=== PATIENT | female | born 1955 | race Caucasian/White ===

== ENCOUNTER 2024-10-21 10:44 | Emergency (ER) | payer MEDICARE, OTHER ==
[~2024-10-21] VITALS: Ht 154.9 cm; Wt 87.7 kg
--- NOTE | 2024-10-21 11:08 | Physician Documentation ---
History of Present Illness ~ Chief Complaint: Abdominal Pain w/vomiting Stated Complaint: VOMITING ABD PAIN Time Seen by MD: 11:02 HPI Patient presents to the emergency room with nausea vomiting abdominal pain. She has been suffering from the nausea for the past six months. She has worked with her primary care that has not received any diagnosis that could explain her chronic nausea and vomiting. She states she has had multiple CT scans. Time of onset this morning at 5:00 a.m. [place] through when symptoms began. Medication Reconciliation Allergies: Coded Allergies: No Known Allergies (Unverified , 10/21/24) Scheduled Promethazine Hcl (Promethegan), 25 MG RC Q6H PRN N/V Review of Systems ROS All review of systems negative except as per HPI Physical Exam Vital Signs: Temperature: 98.1, Heart Rate: 88, Respiratory Rate: 18, BP: 169/69, Pulse Oximetry: 99, Weight: 87.730 Oxygen Flow Rate: 0 Physical Exam General: Patient is awake, alert, oriented x4 in mild distress Head: Normocephalic and atraumatic. Eyes: Conjunctival normal. EOMI. PERRL. ENT: Mucous membranes dry. Neck: Supple, trachea is midline. Chest: Clear to auscultation bilaterally without rales, rhonchi, or wheezes. There is no accessory muscle use or retractions. Cardiac: RRR without murmurs, gallops, or rubs. Abd: Soft, nondistended, positive diffuse abdominal tenderness mostly in the right upper quadrant Progress Results/Orders Results/Orders Orders - LIT ALVAREZ MD Urinalysis, Cult If Indicated (10/21/24 10:52) Ultrasound Of Abdomen (10/21/24 11:08) Completed Orders - LIT ALVAREZ MD Cbc/Diff (10/21/24 10:52) Lipase (10/21/24 10:52) CMP (10/21/24 10:52) LA (10/21/24 11:03) Troponin (Single) (10/21/24 11:03) Ondansetron Inj. (Zofran 4mg/2ml Vial) (10/21/24 11:10) Haloperidol Lact. (Haldol) (10/21/24 11:10) Metoclopramide Inj (Reglan Inj) (10/21/24 11:10) Ultrasound Of Abdomen (10/21/24 11:08) Ketorolac Trometh 15mg/Ml Vial (Toradol (10/21/24 11:10) Diphenhydramine Inj (Benadryl Inj.) (10/21/24 11:10) Lactic,2hr (10/21/24 13:05) Metoclopramide Inj (Reglan Inj) (10/21/24 14:25) Acetaminophen 1,000mg/100ml Iv (Ofirmev (10/21/24 14:30) Normal Saline 1000ml (0.9% Sodium Chlori (10/21/24 14:30) Medications Received in ER Medications (Trade) Dose Ordered Sig/Margarette Route PRN Reason Start Time Stop Time Status Last Admin Dose Admin (Zofran 4mg/2ml vial) 4 mg ONCE ONCE IV 10/21/24 11:10 10/21/24 11:11 DC 10/21/24 12:32 4 MG (Haldol) 2 mg ONCE ONCE IVH 10/21/24 11:10 10/21/24 11:11 DC 10/21/24 12:46 2 MG (Reglan inj) 5 mg ONCE ONCE IV 10/21/24 11:10 10/21/24 11:11 DC 10/21/24 12:34 5 MG (Benadryl inj.) 25 mg ONCE ONCE IV 10/21/24 11:10 10/21/24 11:11 DC 10/21/24 12:32 25 MG (Toradol injection) 15 mg ONCE ONCE IV 10/21/24 11:10 10/21/24 11:11 DC 10/21/24 12:33 15 MG (Reglan inj) 5 mg ONCE ONCE IV 10/21/24 14:25 10/21/24 14:31 DC 10/21/24 14:37 5 MG Acetaminophen 100 ml @ 400 mls/hr ONCE ONCE IV 10/21/24 14:30 10/21/24 14:44 DC 10/21/24 14:37 400 MLS/HR (0.9% sodium chloride (NS) 1000ml IV soln) 1,000 ml ONCE ONCE IVB 10/21/24 14:30 10/21/24 14:31 DC 10/21/24 14:37 1,000 ML Vital Signs 10/21/24 10/21/24 10/21/24 10/21/24 10:49 11:13 11:24 12:25 Temp 98.1 98.1 Pulse 88 89 92 Resp 18 17 16 16 B/P (MAP) 169/69 201/94 (129) 128/69 (88) Pulse Ox 99 95 92 O2 Flow Rate 0 0 10/21/24 10/21/24 10/21/24 10/21/24 12:33 13:33 13:37 14:29 Temp 102.9 Pulse 85 101 Resp 16 16 16 14 B/P (MAP) 131/60 (83) 138/74 (95) Pulse Ox 91 93 10/21/24 10/21/24 10/21/24 14:30 15:49 15:50 Temp 98.6 98.6 Pulse 88 89 Resp 16 16 B/P (MAP) 151/72 (98) 151/72 Pulse Ox 95 93 94 O2 Delivery Nasal Cannula* O2 Flow Rate 1 0 FiO2 N/A Laboratory Tests Test 10/21/24 11:05 10/21/24 11:36 10/21/24 13:23 White Blood Count 3.5 L Red Blood Count 5.50 Hemoglobin 14.6 Hematocrit 45.7 H Mean Corpuscular Volume 83.0 Mean Corpuscular Hemoglobin 26.6 L Mean Corpuscular Hemoglobin Concent 32.0 L Red Cell Distribution Width 16.5 H Platelet Count 130 L Mean Platelet Volume 7.8 Neutrophils (%) (Auto) 88.1 H Lymphocytes (%) (Auto) 6.8 L Monocytes (%) (Auto) 4.6 Eosinophils (%) (Auto) 0.1 Basophils (%) (Auto) 0.4 Neutrophils # (Auto) 3.1 Lymphocytes # (Auto) 0.2 L Monocytes # (Auto) 0.2 Eosinophils # (Auto) 0.0 Basophils # (Auto) 0.0 CBC Comment Sodium Level 141 Potassium Level 3.7 Chloride Level 106 Carbon Dioxide Level 25.5 Anion Gap 10 Blood Urea Nitrogen 13 Creatinine 0.86 Estimated GFR/1.73 m2 65 BUN/Creatinine Ratio 15.1 Glucose Level 131 H Calcium Level 8.9 Total Bilirubin 0.9 Aspartate Amino Transf (AST/SGOT) 26 Alanine Aminotransferase (ALT/SGPT) 22 Alkaline Phosphatase 74 Troponin I High Sensitivity 11 Total Protein 6.8 Albumin 3.7 Globulin 3.1 Albumin/Globulin Ratio 1.2 Lipase 15 L Chemistry Comments Lactic Acid Level 2.3 H 1.9 Medical Decision Making Findings Patient presents to the emergency room with nausea vomiting abdominal pain. Differentials include but are not limited to gastritis, cholecystitis, pancreatitis, diverticulitis, small-bowel obstruction, appendicitis therefore emergent labs indicated. Patient has had multiple prior CT scans for similar complaints therefore I do not feel patient requires a CT scan given her reassuring vitals and blood workup. She is responding to antiemetics. The need to follow up with her doctor as well as ER precautions discussed Departure Disposition: HOME / SELF CARE / HOMELESS Impression: Primary Impression: Vomiting Condition: Improved Discharge Instructions: Gastritis, Adult Referrals: NO PRIMARY CARE PROVIDER (PCP) Prescriptions Promethazine Hcl (Promethegan) 25 Mg Supp.rect 25 MG RC Q6H PRN N/V, #10 SUPP Prov: LIT ALVAREZ MD 10/21/24 Signature Scribe Signature: No scribe Attestation: The note accurately reflects work and decisions made by me.Lit Alvarez MD 10/21/24 14:25 LIT ALVAREZ MD Oct 21, 2024 11:08
[2024-10-21 11:18] LABS: MEAN PLATELET VOLUME 7.8 FL (7.4-10.4); RED CELL DISTRIBUTION WIDTH 16.5 % (11.5-14.5)
[2024-10-21 11:33] LABS: CREATININE 0.86 MG/DL (0.40-0.90); TOTAL CARBON DIOXIDE 25.5 MMOL/L (24-32); eCRCL 45 ML/MIN; eGFR 65 ML/MIN
[2024-10-21] MEDS: ondansetron/PF 4mg/2ml inj IV ONE (12:32)
[2024-10-21] MEDS: ketorolac trometh 15mg/ml vial 15 MG/ML ML IV ONE (12:33)
[2024-10-21] MEDS: metoclopramide 5 mg/ml inj IV ONE ×2 (12:34→14:37)
--- NOTE | 2024-10-21 12:40 | RADIOLOGY REPORT ---
INDICATION: Possible cholecystitis TECHNIQUE: Multiple real-time sonographic images of the abdomen were obtained. COMPARISON: None FINDINGS: The liver is heterogenous in echogenicity. The liver measures 16cm. No intrahepatic biliar y ductal dilatation is noted. The gallbladder wall measures 0.3 cm and is unremarkable. Gallstones are noted. Gallbladder sludge is present. The right kidney measures 10cm. No hydronephrosis. The pancreas is not well visualized due to obscuration from bowel gas. The visualized portions of the IVC and aorta are grossly unremarkable. IMPRESSION: Gallstones/gallbladder sludge.
[2024-10-21] MEDS: haloperidol lactate 5mg/ml inj IVH ONE (12:46)
[2024-10-21] MEDS ORDERED: PROM25SU9 RC (14:25)
[2024-10-21] MEDS: normal saline 1000ML IV soln IVB ONE (14:37)
[2024-10-21] MEDS: acetaminophen 1,000mg/100ml IV 100 ML IV ONE (14:37)
[2024-10-21 15:50] VITALS: BP 151/72; PULSE 89; RESP 16; TEMP 98.6; O2SAT 94
== END 2024-10-21 16:17 | disposition home or self-care (01) ==
LOC: ER 10:46
DX: R11.2 Nausea with vomiting, unspecified (principal); R10.9 Unspecified abdominal pain
CPT/HCPCS: 36415; 76700; 80053; 83605; 83690; 84484; 85025; 96361; 96365; 96375; 96376; 99285; A4615; J0131; J1200; J1630; J1885; J2405; J2765; J7030